=== PATIENT | male | born 1990 | race Caucasian/White ===

== ENCOUNTER 2018-02-10 16:08 | Inpatient (IN) | payer OTHER ==
[~2018-02-10] VITALS: Ht 170.2 cm; Wt 113.4 kg
--- NOTE | 2018-02-10 17:11 | ED GI/GU/ABDOMINAL COMPLAINT ---
History of Present Illness General Chief Complaint: Abdominal Pain/Flank Pain Stated Complaint: ABD PAIN & HAVING ISSUES URINATING Source: patient Exam Limitations: no limitations Vital Signs & Intake/Output Vital Signs & Intake/Output Vital Signs Date Time Temp Pulse Resp B/P B/P Pulse O2 O2 Flow FiO2 Mean Ox Delivery Rate 02/10 2011 100.0 100 20 136/68 98 Room Air 02/10 1752 101.1 97 18 147/65 98 Room Air 02/10 1720 Room Air 02/10 1612 98.6 112 18 153/84 98 Room Air Allergies Coded Allergies: amoxicillin (HIVES 02/10/18) Triage Note: PT STATES A FEW DAYS AGO HE THOUGHT HE PULLED HIS GROIN AND STOMACH MUSCLES. PT STATES THEN HE STARTED HAVING PAIN IN HIS TESTICLES. PT STATSE HE HAS BEEN URINATING A LOT AND HAS DYSURIA. PT HAVING BODY ACHES. Triage Nurses Notes Reviewed? yes Onset: Abrupt Duration: day(s): (3-4), constant, continues in ED, getting worse Timing: single episode today Quality/Severity: dullness, fullness Severity Numbers: 7 Location: suprapubic Radiation: scrotal Activities at Onset: none Prior Abdominal Problems: none Sexually Active: No Last Time You Were Sexual: greater than 2 months ago No Modifying Factors: none Modifying Factors: Worsens With: palpation, urinating. HPI: 27-year-old male with no past medical history presents for evaluation of abdominal pain and testicular pain. Patient reports symptoms started 3 or 4 days ago and have been persistent. He reports pain located in the super pubic area radiating to both testicles. He reports associated urinary frequency and dysuria. No penile discharge no testicular swelling no nausea or vomiting. He also reports he has had intermittent constipation he had a small bowel movement yesterday. No blood no diarrhea no melena. He has had some sweats chills body aches and subjective fever. He has not taken any medicine for his symptoms. No recent abdominal surgeries no similar symptoms in the past. He is not currently sexually active. No history of STDs. (Leonardo BECKFORD,Alon) Past History Travel History Traveled to [place] past 21 day No Medical History Any Pertinent Medical History? see below for history Surgical History Surgical History: non-contributory Psychosocial History What is your primary language [place]orese Tobacco Use: Current Daily Use Daily Tobacco Use Amount/Type: => 5 Cigarettes daily ETOH Use: occasional use Illicit Drug Use: denies illicit drug use Family History Hx Contributory? No (Alon Leal) Review of Systems Review of Systems Constitutional: Reports: no symptoms. EENTM: Reports: no symptoms. Respiratory: Reports: no symptoms. Cardiovascular: Reports: no symptoms. GI: Reports: see HPI, abdominal pain. Genitourinary: Reports: see HPI. Musculoskeletal: Reports: no symptoms. Skin: Reports: no symptoms. Neurological/Psychological: Reports: no symptoms. Hematologic/Endocrine: Reports: no symptoms. Immunologic/Allergic: Reports: no symptoms. All Other Systems: Reviewed and Negative (Alon Leal) Physical Exam Physical Exam General Appearance: well developed/nourished, no apparent distress, alert, awake Head: atraumatic, normal appearance Eyes: Bilateral: normal appearance, PERRL, EOMI. Ears, Nose, Throat, Mouth: hearing grossly normal, moist mucous membrane Neck: normal inspection, supple, full range of motion Respiratory: normal breath sounds, chest non-tender, no respiratory distress, lungs clear Cardiovascular: regular rate/rhythm, normal peripheral pulses Peripheral Pulses: 2+ radial (R), 2+ radial (L) Gastrointestinal: normal bowel sounds, soft, no organomegaly, tenderness ( suprapubic) Male Genitals: normal genitalia, testicular tenderness (R), testicular tenderness (L), no testicular swelling redness or crepitus Back: normal inspection, normal range of motion, no vertebral tenderness Extremities: normal range of motion Neurologic/Psych: no motor/sensory deficits, awake, alert, oriented x 3, normal gait, normal mood/affect Skin: intact, normal color, warm/dry Core Measures ACS in differential dx? No Sepsis Present: No Sepsis Focused Exam Completed? No (Alon Leal) Progress Differential Diagnosis: appendicitis, biliary colic, bowel obstruction, cholecystitis, diverticulitis, inflamm bowel dis, orchitis, pancreatitis, peptic ulcer, pyelonephritis, SBO, STD, testicular torsion, ureterolithiasis, urinary retention, urethritis, UTI/pyelo Plan of Care: Orders Procedure Date/time Status Nothing by Mouth 02/11 B Active CBC WITHOUT DIFFERENTIAL 02/11 600 Active BASIC ELECTROLYTES PLUS BUN&CR 02/11 600 Active Pathway - chart 02/10 2127 Active Patient Data 02/10 2118 Active Code Status 02/10 2118 Active BLOOD CULTURE 02/10 190 Active Add-on Test (ER Only) 02/10 172 Active COMPREHENSIVE METABOLIC PANEL 02/10 171 Complete CBC WITHOUT DIFFERENTIAL 02/10 171 Complete CHLAMYDIA-GC DNA PROBE 02/10 162 Active URINALYSIS 02/[address] in observation 02/10 UNK Active VTE Mechanical Prophylaxis 02/10 UNK Active Vital Signs 02/10 UNK Active Intake & Output 02/10 UNK Active Activity/Ambulation 02/10 UNK Active Current Medications Sig/Romi Start time Last Medication Dose Stop Time Status Admin Heparin Sodium 5,000 UNIT Q8 02/11 1400 AC (Porcine) Ceftriaxone Sodium 1,000 MG DAILY 02/11 0900 AC (Rocephin) Metronidazole 500 MG IQ8 02/11 0000 AC (Flagyl) N/A 1 UNIT (No Carrier) Acetaminophen 650 MG Q6PRN PRN 02/10 213 AC (Tylenol) Dextrose/Sodium 1,000 ML .Q8H 02/10 2130 AC Chloride (D5-Normal Saline) Morphine Sulfate 2 MG Q3 PRN 02/10 213 AC (MORPHINE SULFATE) Morphine Sulfate 4 MG Q3P PRN 02/10 213 AC (MORPHINE SULFATE) Ondansetron HCl 4 MG Q6-PRN PRN 02/10 2130 AC (Zofran) Laboratory Tests 02/10/181727: Anion Gap 17 H, Estimated GFR > 60, BUN/Creatinine Ratio 11.7, Glucose 92, Calcium 9.4, Total Bilirubin 0.9, AST 21, ALT 31, Alkaline Phosphatase 119, Total Protein 7.9, Albumin 4.3, Globulin 3.6, Albumin/Globulin Ratio 1.2, CBC w Diff NO MAN DIFF REQ, RBC 5.15, MCV 83.9, MCH 28.6, MCHC 34.1, RDW 12.4, MPV 7.9 , Gran % 80.5 H, Lymphocytes % 7.3 L, Monocytes % 11.3 H, Eosinophils % 0.5, Basophils % 0.4, Absolute Granulocytes 10.8 H, Absolute Lymphocytes 1.0 L, Absolute Monocytes 1.5 H, Absolute Eosinophils 0.1, Absolute Basophils 0 02/10/181624: Urine Color YEL, Urine Clarity CLEAR, Urine pH 6.5, Ur Specific [place] <= 1.005 , Urine Protein NEG, Urine Ketones 40 H, Urine Nitrite NEG, Urine Bilirubin NEG , Urine Urobilinogen 0.2, Ur Leukocyte Esterase NEG, Ur Microscopic EXAM NOT REQUIRED, Urine Hemoglobin NEG, Urine Glucose NEG Microbiology 02/10 1909 BLOOD: Blood Culture - ORD 02/10 1909 BLOOD: Blood Culture - ORD 02/10 1625 URINE ROUT: GC DNA Probe - RECD 02/10 1625 URINE ROUT: Chlamydia DNA Probe (SHAHANA) - RECD Patient is here with superpubic abdominal pain and urinary symptoms he also has testicular pain. Urine is not showing any signs of infection. Patient did spike a temp of 101. Fluids IV Toradol ordered. CT scan labs testicular ultrasound ordered. And 13,000. Testicular ultrasound is negative. CT scan shows diverticulitis, treated by intramural abscess. The affectedbladder Is encroaching on the bladder causing bladder wall thickening. No obvious abscess. Patient denies stool or air in his urine. Patient will be admitted to the surgical service for further evaluation and treatment. IV antibiotics Flagyl and Rocephin ordered. Blood cultures ordered. Case discussed with Dr. hernandez he agrees. Diagnostic Imaging: Viewed by Me: CT Scan, Ultrasound. Discussed w/RAD: CT Scan, Ultrasound. Radiology Impression: PATIENT: HERBIE THIBODEAUX PRESENT AGE: 27 PATIENT ACCOUNT NO: [id number] : 89 LOCATION: [facility] ORDERING PHYSICIAN: Alon BECKFORD SERVICE DATE: 02/10/18 EXAM TYPE: US - US-TESTICULAR EXAMINATION: US SCROTUM CLINICAL INFORMATION: Bilateral testicular pain COMPARISON: CT abdomen pelvis 02/10/2018 TECHNIQUE: A sonogram of the scrotum was performed assessing akins-scale appearance and color Doppler flow. Spectral analysis and Doppler interrogation was performed. FINDINGS: RIGHT : Right testicle measures 2.5 x 2.0 x 3.6 cm, volume 12.8 mL. Parenchymal echotexture is normal. No focal testicular parenchymal lesions are visualized. Normal symmetric intratesticular flow is visualized. Right epididymal head is normal in size. No right hydrocele or varicocele is seen. LEFT: Left testicle measures 4.1 x 1.9 x 2.7 cm, volume 14.9 mL. Parenchymal echotexture is normal. No focal testicular parenchymal lesions are visualized. Normal symmetric intratesticular flow is visualized. Left epididymal head is normal in size. No left hydrocele or varicocele is seen. IMPRESSION: Normal scrotal ultrasound. DICTATED BY: Radha Mesa MD DATE/TIME DICTATED:02/10/181911 AUTOMOTIVE QUALITY MANAGER :FERNANDO DATE/TIME TRANSCRIBED:02/10/181911 CONFIDENTIAL, DO NOT COPY WITHOUT APPROPRIATE AUTHORIZATION. Initial ED EKG: none (Alon Leal) Departure Departure Disposition: STILL A PATIENT Condition: Stable Clinical Impression Primary Impression: Diverticulitis of large intestine with abscess Qualifiers: Diverticulitis bleeding: without bleeding Qualified Code: K57.20 - Diverticulitis of large intestine with perforation and abscess without bleeding Referrals: Patient Has No Primary Care Dr (PCP/Family) Departure Forms: Customer Survey General Discharge Information Admission Note Spoke With: Raul Kc DO Documentation of Exam: Documentation of any treatments & extenuating circumstances including Concerns Regarding Discharge (functional status, medication knowledge or non-compliance, living conditions, etc.) that warrant an admission rather than observation: [IV antibiotics, IV fluids, IV pain meds, serial labs, surgical consult for drainage of abscess] (Alon Leal) PA/PRODUCE SERVICE TEAM MEMBER Co-Sign Statement Statement: ED Attending supervision documentation- x I saw and evaluated the patient. I have also reviewed all the pertinent lab results and diagnostic results. I agree with the findings and the plan of care as documented in the PA's/PRODUCE SERVICE TEAM MEMBER's documentation. LLQ tenderness, dysuria: diverticulitis with abscess on CT. [] I have reviewed the ED Record and agree with the PA's/PRODUCE SERVICE TEAM MEMBER's documentation. [] Additions or exceptions (if any) to the PAs/PRODUCE SERVICE TEAM MEMBER's note and plan are summarized below: [] (Kelli NORMAN,Quentin)
[2018-02-10 17:52] LABS: ABSOLUTE BASOPHIL COUNT 0 /CUMM (0.0-0.2); ABSOLUTE EOSINOPHIL COUNT 0.1 /CUMM (0.0-0.7); ABSOLUTE GRANULOCYTE CT 10.8 /CUMM (1.4-6.5); ABSOLUTE MONOCYTE COUNT 1.5 /CUMM (0.10-0.60); BASOPHIL % 0.4 % (0.0-2.0); EOSINOPHIL % 0.5 % (0-5); GRANULOCYTE % 80.5 % (42.2-75.2); HEMATOCRIT 43.2 % (42-52); MEAN CORPUSCULAR HGB 28.6 PG (27.0-31.0); MEAN CORPUSCULAR HGB CONC 34.1 G/DL (33.0-37.0); MEAN CORPUSCULAR VOLUME 83.9 FL (80.0-94.0); MEAN PLATELET VOLUME 7.9 FL (7.4-10.4); PLATELET COUNT 303 /CUMM (130-400); RBC DISTRIBUTION WIDTH 12.4 % (11.5-14.5); RED BLOOD CELL CT 5.15 /CUMM (4.70-6.10); WHITE BLOOD CELL COUNT 13.4 /CUMM (4.8-10.8)
--- NOTE | 2018-02-10 18:54 | CT SCAN REPORT ---
EXAMINATION: CT ABDOMEN AND PELVIS WITH CONTRAST CLINICAL INFORMATION: Suprapubic pain and fever. COMPARISON: Abdominal ultrasound 08/22/2009. TECHNIQUE: Multidetector volumetric imaging was performed of the abdomen and pelvis following IV administration of 95 mL of Optiray 320 intravenous contrast. Sagittal and coronal reformatted images were obtained on the technologist's workstation. DLP: 661.63 mGy-cm FINDINGS: LUNG BASES: The visualized lung bases are unremarkable. LIVER, GALLBLADDER, AND BILIARY TREE: The liver is normal in size, shape, and attenuation. No focal hepatic lesion or biliary ductal dilatation is present. The gallbladder is unremarkable with no evidence of radiopaque gallstones, gallbladder wall thickening, or obvious pericholecystic inflammatory changes. PANCREAS: Unremarkable. SPLEEN: Unremarkable. ADRENAL GLANDS: Unremarkable. KIDNEYS AND URETERS: The kidneys are normal in size, shape, and attenuation. No hydronephrosis, hydroureter, or calculi seen. No perinephric stranding. BLADDER: The dome of the bladder is thickened adjacent to an abscess that extends from the sigmoid colon. GASTROINTESTINAL TRACT: Severe inflammatory changes of the mid sigmoid colon where there is evidence of diverticular disease consistent with acute diverticulitis. There is an oval hypodense collection that appears to be within the wall of the colon measuring 2.1 x 5.7 x 2.0 cm in the AP by transverse by craniocaudal dimensions. Extending inferiorly from this focal collection is a loculation that closely marginates the bladder in an area of bladder wall thickening. This more inferiorly located loculation measures approximately 2.6 x 2.8 x 2.2 cm in the AP by transverse by craniocaudal dimensions, respectively. This is intimately associated with the bladder wall and cannot be from it. The appendix is unremarkable. No bowel obstruction. ABDOMINAL WALL: No significant hernia is appreciated. LYMPH NODES: Multiple small likely reactive lymph nodes are seen within the mesenteric root approaching the pelvis in the area of sigmoid inflammation. No bulky lymphadenopathy within the abdomen or pelvis. VASCULAR: Unremarkable. PELVIC VISCERA: Unremarkable. OSSEOUS STRUCTURES: No acute or suspicious osseous abnormality. IMPRESSION: 1. Acute diverticulitis of the mid sigmoid colon complicated by an intramural abscess. From this intramural abscess, a small loculation extends inferiorly and is intimately associated with the bladder dome. The bladder wall in this area is thickened in reaction to the abscess. There are regional reactive lymph nodes. 2. The appendix is unremarkable.
--- NOTE | 2018-02-10 19:16 | ULTRASOUND REPORT ---
EXAMINATION: US SCROTUM CLINICAL INFORMATION: Bilateral testicular pain COMPARISON: CT abdomen pelvis 02/10/2018 TECHNIQUE: A sonogram of the scrotum was performed assessing akins-scale appearance and color Doppler flow. Spectral analysis and Doppler interrogation was performed. FINDINGS: RIGHT: Right testicle measures 2.5 x 2.0 x 3.6 cm, volume 12.8 mL. Parenchymal echotexture is normal. No focal testicular parenchymal lesions are visualized. Normal symmetric intratesticular flow is visualized. Right epididymal head is normal in size. No right hydrocele or varicocele is seen. LEFT: Left testicle measures 4.1 x 1.9 x 2.7 cm, volume 14.9 mL. Parenchymal echotexture is normal. No focal testicular parenchymal lesions are visualized. Normal symmetric intratesticular flow is visualized. Left epididymal head is normal in size. No left hydrocele or varicocele is seen. IMPRESSION: Normal scrotal ultrasound.
--- NOTE | 2018-02-10 21:12 | History & Physical Pre-Op ---
Briseyda Alexis 02/10/182110: General Information and HPI History of Present Illness: 27yoM presents to ED with lower abd pain worsening over last 3 days. Denies PMHx other than active smoker x15yrs. Pain began in groin and thought he pulled a muscle, but pain has localized to lower abd/pelvic region. Denies n/v, but has had subjective fevers at home and Tm 101 here in ED. Last BM 3 days ago, does have occasional constipation. Denies dysuria, no fecal matter or pneumaturia. Has never had pain like this in past, and has no history of gi disorders or divertixculitis. No hx colonoscopy, no fam hx colon ca or gi problems. no surgical hx. Past History Medical History Cardiovascular: NONE Respiratory: NONE Gastrointestinal: NONE Musculoskeletal: NONE Psychiatric: NONE Endocrine: NONE Blood Disorders: NONE Cancer(s): NONE Surgical History Pertinent Surgical History: none Past Family/Social History Psychosocial History Smoking Status: Current Everyday Smoker (1ppd x15yr) ETOH Use: denies use (weekends), occasional use Illicit Drug Use: denies illicit drug use Employment History Employment: Employed Profession/Employer: [employer] Exam & Diagnostic Data Last 24 Hrs of Vital Signs/I&O Vital Signs Date Time Temp Pulse Resp B/P B/P Pulse O2 O2 Flow FiO2 Mean Ox Delivery Rate 02/10 2011 100.0 100 20 136/68 98 Room Air 02/10 1752 101.1 97 18 147/65 98 Room Air 02/10 1720 Room Air 02/10 1612 98.6 112 18 153/84 98 Room Air Physical Exam: GEN: NAD CARD: S1S2 RRR PULM: CTAB ABD: obese, soft, ttp suprapubic, no masses or lesions, nondistended, +bs EXT: calves soft nt, no edema Last 24 Hrs of Labs/Dex: Laboratory Tests 02/10/18 1728: Anion Gap 17 H, Estimated GFR > 60, BUN/Creatinine Ratio 11.7, Glucose 92, Calcium 9.4, Total Bilirubin 0.9, AST 21, ALT 31, Alkaline Phosphatase 119, Total Protein 7.9, Albumin 4.3, Globulin 3.6, Albumin/Globulin Ratio 1.2, CBC w Diff NO MAN DIFF REQ, RBC 5.15, MCV 83.9, MCH 28.6, MCHC 34.1, RDW 12.4, MPV 7.9 , Gran % 80.5 H, Lymphocytes % 7.3 L, Monocytes % 11.3 H, Eosinophils % 0.5, Basophils % 0.4, Absolute Granulocytes 10.8 H, Absolute Lymphocytes 1.0 L, Absolute Monocytes 1.5 H, Absolute Eosinophils 0.1, Absolute Basophils 0 02/10/18 162: Urine Color YEL, Urine Clarity CLEAR, Urine pH 6.5, Ur Specific [place] <= 1.005 , Urine Protein NEG, Urine Ketones 40 H, Urine Nitrite NEG, Urine Bilirubin NEG , Urine Urobilinogen 0.2, Ur Leukocyte Esterase NEG, Ur Microscopic EXAM NOT REQUIRED, Urine Hemoglobin NEG, Urine Glucose NEG Microbiology 02/10 1909 BLOOD: Blood Culture - ORD 02/10 1909 BLOOD: Blood Culture - ORD 02/10 1625 URINE ROUT: GC DNA Probe - RECD 02/10 1625 URINE ROUT: Chlamydia DNA Probe (DEX) - RECD Diagnostic Data Other Results SERVICE DATE: 02/10/18 EXAM TYPE: CAT - CT ABD & PELVIS W IV CONTRAST EXAMINATION: CT ABDOMEN AND PELVIS WITH CONTRAST CLINICAL INFORMATION: Suprapubic pain and fever. COMPARISON: Abdominal ultrasound 08/22/2009. TECHNIQUE: Multidetector volumetric imaging was performed of the abdomen and pelvis following IV administration of 95 mL of Optiray 320 intravenous contrast. Sagittal and coronal reformatted images were obtained on the technologist's workstation. DLP: 661.63 mGy-cm FINDINGS: LUNG BASES: The visualized lung bases are unremarkable. LIVER, GALLBLADDER, AND BILIARY TREE: The liver is normal in size, shape, and attenuation. No focal hepatic lesion or biliary ductal dilatation is present. The gallbladder is unremarkable with no evidence of radiopaque gallstones, gallbladder wall thickening, or obvious pericholecystic inflammatory changes. PANCREAS: Unremarkable. SPLEEN: Unremarkable. ADRENAL GLANDS: Unremarkable. KIDNEYS AND URETERS: The kidneys are normal in size, shape, and attenuation. No hydronephrosis, hydroureter, or calculi seen. No perinephric stranding. BLADDER: The dome of the bladder is thickened adjacent to an abscess that extends from the sigmoid colon. GASTROINTESTINAL TRACT: Severe inflammatory changes of the mid sigmoid colon where there is evidence of diverticular disease consistent with acute diverticulitis. There is an oval hypodense collection that appears to be within the wall of the colon measuring 2.1 x 5.7 x 2.0 cm in the AP by transverse by craniocaudal dimensions. Extending inferiorly from this focal collection is a loculation that closely marginates the bladder in an area of bladder wall thickening. This more inferiorly located loculation measures approximately 2.6 x 2.8 x 2.2 cm in the AP by transverse by craniocaudal dimensions, respectively. This is intimately associated with the bladder wall and cannot be from it. The appendix is unremarkable. No bowel obstruction. ABDOMINAL WALL: No significant hernia is appreciated. LYMPH NODES: Multiple small likely reactive lymph nodes are seen within the mesenteric root approaching the pelvis in the area of sigmoid inflammation. No bulky lymphadenopathy within the abdomen or pelvis. VASCULAR: Unremarkable. PELVIC VISCERA: Unremarkable. OSSEOUS STRUCTURES: No acute or suspicious osseous abnormality. IMPRESSION: 1. Acute diverticulitis of the mid sigmoid colon complicated by an intramural abscess. From this intramural abscess, a small loculation extends inferiorly and is intimately associated with the bladder dome. The bladder wall in this area is thickened in reaction to the abscess. There are regional reactive lymph nodes. 2. The appendix is unremarkable. Assessment/Plan Assessment/Plan: A: 27 YOM with sigmoid diverticulitis with intramural abscess with inflammatory reaction of bladder seen on imaging, with leukocytosis of 13 K, febrile in emergency department, otherwise stable. P: - observation status to surgical service - DVT ppx- hep sq, alps - NPO, IVF - prn pain meds - OOB, ambulate - abx: rocephin, flagyl - serial labs - serial abd exams - dw Dr. Kc As Ranked By This Provider Problem List: 1. Diverticulitis of large intestine with abscess Raul Kc DO 02/11/18 191: General Information and HPI Allergies/Medications Allergies: Coded Allergies: amoxicillin (HIVES 02/10/18) azithromycin (UNKNOWN 02/11/18) Attending MD Review Statement Attending Statement Attending MD Statement: examined this patient, discuss w/resident/PA/INSTALL AND REPAIR TECHNICIAN, agreed w/resident/PA/INSTALL AND REPAIR TECHNICIAN, reviewed EMR data (avail), reviewed images Attending Assessment/Plan: Patient seen and examined, agree with above. Has h/o abdominal pain that would last a couple of days and then go away, this time got more severe. Currently states he feels slightly better. Tm 100.5 VSS UO ok. Abd-soft, +suprapubic tenderness. WBC down. CT scan - sigmoid diverticulitis, intermural abscess with small extension behind bladder. NPO/IVF, IV Abx, serial abdominal exams, will re -eval in next 24-48 for possible drainage of the small abscess by bladder if no improvement.
--- NOTE | 2018-02-10 21:12 | Admission Core Measures ---
Acute Coronary Syndrome (CM) ACS Core Measures Acute Coronary Syndrome Diagnosis No Congestive Heart Failure (NEW) CHF Core Measures Congestive Heart Failure Diagnosis No Cerebrovascular Accident CVA Core Measures CVA/TIA Diagnosis No Venous Thromboembolism VTE Core Carmen (View Protocol) VTE Risk Factors Acute Medical Illness No Mechanical VTE Prophylaxis d/t N/A MechProphylax Ordered No VTE Pharm Prophylaxis d/t NA PharmProphylax ordered Problem List As ranked by this Provider includes Assessment & Plan 1. Diverticulitis of large intestine with abscess
[2018-02-11 00:05] VITALS: BP 148/82
[2018-02-11 06:54] VITALS: BP 114/64
[2018-02-11 08:26] LABS: ABSOLUTE BASOPHIL COUNT 0 /CUMM (0.0-0.2); ABSOLUTE EOSINOPHIL COUNT 0 /CUMM (0.0-0.7); ABSOLUTE GRANULOCYTE CT 7.6 /CUMM (1.4-6.5); ABSOLUTE LYMPH COUNT 0.8 /CUMM (1.2-3.4); ABSOLUTE MONOCYTE COUNT 1.1 /CUMM (0.10-0.60); BASOPHIL % 0.1 % (0.0-2.0); EOSINOPHIL % 0.4 % (0-5); GRANULOCYTE % 79.6 % (42.2-75.2); MEAN CORPUSCULAR HGB 28.8 PG (27.0-31.0); MEAN CORPUSCULAR VOLUME 82.4 FL (80.0-94.0); MEAN PLATELET VOLUME 8.1 FL (7.4-10.4); PLATELET COUNT 255 /CUMM (130-400); RBC DISTRIBUTION WIDTH 11.9 % (11.5-14.5); RED BLOOD CELL CT 4.18 /CUMM (4.70-6.10); WHITE BLOOD CELL COUNT 9.6 /CUMM (4.8-10.8)
--- NOTE | 2018-02-11 08:29 | PN- General Surgery ---
Subjective Subjective: Patient reports no worsening of symptoms, and at times some minor improvement. He passed a small amount of flatus overnight, no bm. Denies air/feculant associated dysuria. Denies nausea and vomitting. Denies chest pain, shortness of breath and difficulty breahting. Is very anxious at the prospect of surgical intervention. Objective Vital Signs and I&Os Vital Signs Date Time Temp Pulse Resp B/P B/P Pulse O2 O2 Flow FiO2 Mean Ox Delivery Rate 02/11 0654 100.5 102 16 114/64 97 Room Air 02/11 0005 99.8 105 16 148/82 98 Room Air 02/10 2011 100.0 100 20 136/68 98 Room Air 02/10 1752 101.1 97 18 147/65 98 Room Air 02/10 1720 Room Air 02/10 1612 98.6 112 18 153/84 98 Room Air Intake & Output 02/11 1600 02/11 0800 02/11 0000 02/10 1600 02/10 0800 02/10 0000 Intake Total 1000 Output Total 350 Balance 650 Intake, IV 1000 Output, Urine 350 Patient 250 lb 250 lb Weight Weight Reported by Patient Measurement Method Physical Exam: General: Alert and oriented x3, no acute distress although tearful when discussing surgical fear Cardiac: RRR, s1s2 Pulm: C T A bilaterally, non-labored Abdomen: Soft, non-distended. Suprapubic tenderness with gentle palpation, some guarding noted, no peritonitic signs. Extremiteis: Moves all extremities, distal sensation intact. No peripheral edema. Skin warm, likely febrile. Bilateral calves soft and non-tender Assessment/Plan Assessment/Plan This is a 27 year old male, no pmh, placed in observation status for acute diverticulitis and bladder wall edema. Being treated conservatively with iv abx , npo. -Continue serial abdominal exams Watch for worsening abdominal pain, distension. Air/feculant material with dysuria -Offirmev for pain/fever -Continue rocephin/flagyl -Continue npo/iv fluids -Follow up cbc, watch for improved leukocytosis Will discuss plan of care with Dr. Kc Core Measures Venous Thromboembolism VTE Risk Factors Acute Medical Illness No Mechanical VTE Prophylaxis d/t N/A MechProphylax Ordered No VTE Pharm Prophylaxis d/t NA PharmProphylax ordered
[2018-02-11 08:36] LABS: HEMATOCRIT 34.4 % (42-52)
[2018-02-11 15:01] VITALS: BP 130/70
[2018-02-11 21:23] VITALS: BP 126/78
[2018-02-12 06:20] VITALS: BP 144/80
--- NOTE | 2018-02-12 07:36 | PN- General Surgery ---
See Addendum Subjective Subjective: Reports some sweats overnight. Fever of 101.3 overnight. Reports abdominal pain improving. Reports less urinary symptoms. Denies pneumaturia. Passing flatus. No bms. Denies nausea. No vomiting. Ambulating without difficulty. No shortness of breath. No chest pains. Objective Vital Signs and I&Os Vital Signs Date Time Temp Pulse Resp B/P B/P Pulse O2 O2 Flow FiO2 Mean Ox Delivery Rate 02/12 0620 99.4 83 18 144/80 96 Room Air 02/12 0422 98.8 02/11 2123 98.7 90 18 126/78 97 Room Air 02/11 2058 98.7 02/11 2002 101.3 02/11 195 101.3 02/11 1908 100.1 02/11 1501 99.9 94 20 130/70 97 02/11 1033 98.7 Intake & Output 02/12 0800 02/12 0000 02/11 1600 02/11 0800 02/11 0000 02/10 1600 Intake Total 9120 283 3871 1000 Output Total 700 825 325 350 Balance 300 75 915 650 Intake, IV 8571 348 7500 1000 Intake, Oral 0 240 Output, Urine 700 825 325 350 Patient 250 lb 250 lb 250 lb Weight Weight Reported by Patient Measurement Method Physical Exam: General - alert & oriented x 3. comfortable. no acute distress. Lungs - clear bilaterally. no w/r/r. Cardiac - s1s2. reg. Abdomen - soft. tenderness localized to left lower quadrant. Extremities - warm bilaterally. no c/c/e. calves soft and nontender b/l. Current Medications: Current Medications Sig/Romi Start time Last Medication Dose Route Stop Time Status Admin Acetaminophen 1,000 MG Q6P PRN 02/11 1045 AC 02/12 N/A 1 UNIT IV 0231 Acetaminophen 650 MG Q6PRN PRN 02/10 2130 DC PO Ceftriaxone Sodium 1,000 MG 02/11 DC IV Ceftriaxone Sodium 2,000 MG 02/11 AC 02/11 IV 1903 Ceftriaxone Sodium 1,000 MG DAILY 02/11 09 DC IV Dextrose/Sodium 1,000 ML .Q8H 02/10 2130 AC 02/12 Chloride IV 0420 Gentamicin Sulfate 240 MG ONE ONE 02/12 0800 UNVr Dextrose/Water 100 ML IV 02/12 0830 Heparin Sodium 5,000 UNIT Q8 02/11 1400 AC 02/12 (Porcine) SC 0600 Metronidazole 500 MG IQ8 02/11 0000 AC 02/11 N/A 1 UNIT IV 2353 Morphine Sulfate 2 MG Q3 PRN 02/10 2130 AC 02/11 IV 1408 Morphine Sulfate 4 MG Q3P PRN 02/10 2130 AC 02/12 IV 0026 Ondansetron HCl 4 MG Q6-PRN PRN 02/10 213 AC IV Patient Medication 1 ED ONE ONE 02/11 1700 DC 02/11 Teaching ED 02/11 1701 1653 Potassium Chloride 40 MEQ ONCE ONE 02/11 1230 DC 02/11 PO 02/11 1231 1408 Results Last 48 Hours of Labs: Laboratory Tests 02/11 02/10 0625 1728 Chemistry Sodium (137 - 145 mmol/L) 138 138 Potassium (3.5 - 5.1 mmol/L) 3.4 L 3.5 Chloride (98 - 107 mmol/L) 102 96 L Carbon Dioxide (22 - 30 mmol/L) 24 25 Anion Gap (5 - 16) 12 17 H BUN (9 - 20 mg/dL) 7 L 7 L Creatinine (0.7 - 1.2 mg/dL) 0.6 L 0.6 L Estimated GFR (>60 ml/min) > 60 > 60 BUN/Creatinine Ratio (7 - 25 %) 11.7 11.7 Glucose (65 - 99 mg/dL) 92 Calcium (8.4 - 10.2 mg/dL) 9.4 Total Bilirubin (0.2 - 1.3 mg/dL) 0.9 AST (17 - 59 U/L) 21 ALT (21 - 72 U/L) 31 Alkaline Phosphatase (< 127 U/L) 119 Total Protein (6.3 - 8.2 g/dL) 7.9 Albumin (3.5 - 5.0 g/dL) 4.3 Globulin (1.9 - 4.2 gm/dL) 3.6 Albumin/Globulin Ratio (1.1 - 2.2 %) 1.2 Hematology CBC w Diff NO MAN DIFF REQ NO MAN DIFF REQ WBC (4.8 - 10.8 /CUMM) 9.6 13.4 H RBC (4.70 - 6.10 /CUMM) 4.18 L 5.15 Hgb (14.0 - 18.0 G/DL) 12.0 L 14.8 Hct (42 - 52 %) 34.4 L 43.2 MCV (80.0 - 94.0 FL) 82.4 83.9 MCH (27.0 - 31.0 PG) 28.8 28.6 MCHC (33.0 - 37.0 G/DL) 35.0 34.1 RDW (11.5 - 14.5 %) 11.9 12.4 Plt Count (130 - 400 /CUMM) 255 303 MPV (7.4 - 10.4 FL) 8.1 7.9 Gran % (42.2 - 75.2 %) 79.6 H 80.5 H Lymphocytes % (20.5 - 51.1 %) 8.2 L 7.3 L Monocytes % (1.7 - 9.3 %) 11.7 H 11.3 H Eosinophils % (0 - 5 %) 0.4 0.5 Basophils % (0.0 - 2.0 %) 0.1 0.4 Absolute Granulocytes (1.4 - 6.5 /CUMM) 7.6 H 10.8 H Absolute Lymphocytes (1.2 - 3.4 /CUMM) 0.8 L 1.0 L Absolute Monocytes (0.10 - 0.60 /CUMM) 1.1 H 1.5 H Absolute Eosinophils (0.0 - 0.7 /CUMM) 0 0.1 Absolute Basophils (0.0 - 0.2 /CUMM) 0 0 07/23 1625 Urines Urine Color (YEL,AMB,STR) YEL Urine Clarity (CLEAR) CLEAR Urine pH (5.0 - 8.0) 6.5 Ur Specific Hart (1.001 - 1.035) <= 1.005 Urine Protein (NEG,<30 MG/DL) NEG Urine Ketones (NEG) 40 H Urine Nitrite (NEG) NEG Urine Bilirubin (NEG) NEG Urine Urobilinogen (0.1 - 1.0 EU/dl) 0.2 Ur Leukocyte Esterase (NEG) NEG Ur Microscopic EXAM NOT REQUIRED Urine Hemoglobin (NEG) NEG Urine Glucose (N MG/DL) NEG Assessment/Plan Assessment/Plan This 27 year old male no pmh, admitted for acute diverticulitis and bladder wall edema, currently improving with conservative treatment with iv abx and bowel rest continue npo / ivf continue iv rocephin / flagyl. iv gent x 1 f/u labs oob/ambulation hep sc - dvt ppx will talk to IR about whether the abscess is drainable will d/w Core Measures Venous Thromboembolism VTE Risk Factors Acute Medical Illness No Mechanical VTE Prophylaxis d/t N/A MechProphylax Ordered No VTE Pharm Prophylaxis d/t NA PharmProphylax ordered
[2018-02-12 09:01] LABS: ABSOLUTE BASOPHIL COUNT 0 /CUMM (0.0-0.2); ABSOLUTE EOSINOPHIL COUNT 0.1 /CUMM (0.0-0.7); ABSOLUTE GRANULOCYTE CT 7.6 /CUMM (1.4-6.5); ABSOLUTE LYMPH COUNT 0.9 /CUMM (1.2-3.4); ABSOLUTE MONOCYTE COUNT 1.5 /CUMM (0.10-0.60); BASOPHIL % 0.2 % (0.0-2.0); EOSINOPHIL % 0.8 % (0-5); HEMATOCRIT 37.9 % (42-52); MEAN CORPUSCULAR HGB 28.3 PG (27.0-31.0); MEAN CORPUSCULAR HGB CONC 33.8 G/DL (33.0-37.0); MEAN CORPUSCULAR VOLUME 83.8 FL (80.0-94.0); MEAN PLATELET VOLUME 8.1 FL (7.4-10.4); PLATELET COUNT 226 /CUMM (130-400); RBC DISTRIBUTION WIDTH 12.1 % (11.5-14.5); RED BLOOD CELL CT 4.53 /CUMM (4.70-6.10); WHITE BLOOD CELL COUNT 10.1 /CUMM (4.8-10.8)
[2018-02-12 14:19] VITALS: BP 120/70
[2018-02-12 20:33] VITALS: BP 142/76
[2018-02-13 06:41] VITALS: BP 138/70
--- NOTE | 2018-02-13 08:05 | PN- General Surgery ---
See Addendum Subjective Subjective: Awake, alert Had a bm this morning - loose No pain with bm although pain with movement, improved from admission but still fairly significant pain unless he is lyinig still Denies chills or nausea Objective Vital Signs and I&Os Vital Signs Date Time Temp Pulse Resp B/P B/P Pulse O2 O2 Flow FiO2 Mean Ox Delivery Rate 02/13 0641 98.6 92 16 138/70 97 Room Air 02/12 2033 100.1 96 18 142/76 98 02/12 1419 98.7 84 18 120/70 96 Intake & Output 02/13 1600 02/13 0800 02/13 0000 02/12 1600 02/12 0800 02/12 0000 Intake Total 1000 1000 1000 900 Output Total 275 1050 700 825 Balance 1000 -275 -50 300 75 Intake, IV 1000 1000 1000 900 Intake, Oral 0 0 Number 2 Bowel Movements Output, Urine 275 1050 700 825 Physical Exam: Tmax 100.1 overnight - afebrile now VSS General: alert and oriented times three Chest: clear anteriorly bilaterally, RRR Abd: soft, hypoactive bs, tender to moderate palpation in LLQ, nontender elsewhere Ext: warm, no edema Current Medications: Current Medications Sig/Romi Start time Last Medication Dose Route Stop Time Status Admin Acetaminophen 1,000 MG .STK-MED ONE 02/12 1730 DC IV 02/12 1731 Acetaminophen 1,000 MG .STK-MED ONE 02/12 1033 DC IV 02/12 1034 Acetaminophen 1,000 MG Q6P PRN 02/11 1045 AC 02/13 N/A 1 UNIT IV 0611 Ceftriaxone Sodium 2,000 MG 02/11 AC 02/12 IV 2029 Dextrose/Sodium 1,000 ML .Q8H 02/10 2130 AC 02/13 Chloride IV 0612 Gentamicin Sulfate 240 MG ONCE ONE 02/12 0830 DC 02/12 Dextrose/Water 100 ML IV 02/12 09 0955 Heparin Sodium 5,000 UNIT Q8 02/11 1400 AC 02/13 (Porcine) SC 0608 Metronidazole 500 MG IQ8 02/11 0000 AC 02/12 N/A 1 UNIT IV 2325 Morphine Sulfate 2 MG Q3 PRN 02/10 2130 AC 02/13 IV 0401 Morphine Sulfate 4 MG Q3P PRN 02/10 2130 AC 02/12 IV 0026 Ondansetron HCl 4 MG Q6-PRN PRN 02/100 AC IV Assessment/Plan Assessment/Plan 27yo male admitted with diverticulitis/micro perf, being managed medically improving but still with pain fu labs continue npo/ivf/abx rocephin/flagyl hep sc for dvt ppx Core Measures Venous Thromboembolism VTE Risk Factors Acute Medical Illness No Mechanical VTE Prophylaxis d/t N/A MechProphylax Ordered No VTE Pharm Prophylaxis d/t NA PharmProphylax ordered
[2018-02-13 08:28] LABS: ABSOLUTE BASOPHIL COUNT 0 /CUMM (0.0-0.2); ABSOLUTE EOSINOPHIL COUNT 0.1 /CUMM (0.0-0.7); ABSOLUTE GRANULOCYTE CT 6.2 /CUMM (1.4-6.5); ABSOLUTE MONOCYTE COUNT 1.5 /CUMM (0.10-0.60); BASOPHIL % 0.5 % (0.0-2.0); EOSINOPHIL % 1.3 % (0-5); GRANULOCYTE % 70.4 % (42.2-75.2); HEMATOCRIT 36.4 % (42-52); MEAN CORPUSCULAR HGB 28.8 PG (27.0-31.0); MEAN CORPUSCULAR HGB CONC 34.8 G/DL (33.0-37.0); MEAN CORPUSCULAR VOLUME 82.8 FL (80.0-94.0); MEAN PLATELET VOLUME 7.8 FL (7.4-10.4); PLATELET COUNT 279 /CUMM (130-400); RBC DISTRIBUTION WIDTH 12.2 % (11.5-14.5); WHITE BLOOD CELL COUNT 8.7 /CUMM (4.8-10.8)
--- NOTE | 2018-02-13 12:45 | Patient Discharge Instructions ---
Discharge Instructions General Discharge Information You were seen/treated for: Diverticulitits with abscess You had these procedures: None Watch for these problems: Increased pain, fever, chills, nausea, vomiting Diet Continue normal diet: No Recommended Diet: Low Residue Activity Full Activity/No Limits: Yes Acute Coronary Syndrome Inclusion Criteria At DC or during hospital stay patient has or had the following: ACS DIAGNOSIS No Discharge Core Measures Meds if any: Prescribed or Continued at Discharge Meds if any: NOT Prescribed or Continued at Discharge Congestive Heart Failure Inclusion Criteria At DC or during hospital stay patient has or had the following: CHF DIAGNOSIS No Discharge Core Measures Meds if any: Prescribed or Continued at Discharge Meds if any: NOT Prescribed or Continued at Discharge Cerebrovascular accident Inclusion Criteria At DC or during hospital stay patient has or had the following: CVA/TIA Diagnosis No Discharge Core Measures Meds if any: Prescribed or Continued at Discharge Meds if any: NOT Prescribed or Continued at Discharge Venous thromboembolism Inclusion Criteria VTE Diagnosis No VTE Type NONE VTE Confirmed by (Test) NONE Discharge Core Measures - Per Current guidelines, there needs to be overlap - treatment for the first 5 days of Warfarin therapy. - If discharged on Warfarin prior to 5 days of - overlap therapy, the patient will need to be - assessed for post discharge needs including - *Post discharge parental anticoagulation - *Warfarin and/or parental anticoagulation education - *Follow up date to check INR post discharge At least 5 days overlap therapy as Inpatient No Meds if any: Prescribed or Continued at Discharge Note: Overlap Therapy is Warfarin and Anticoagulant Meds if any: NOT Prescribed or Continued at Discharge
[2018-02-13 15:27] VITALS: BP 134/74
[2018-02-13 20:35] VITALS: BP 148/72
[2018-02-14 06:50] VITALS: BP 130/90
--- NOTE | 2018-02-14 07:33 | PN- General Surgery ---
Subjective Subjective: No complaints. Tolerating clears. No nausea. Passing flatus and +small bm. Voiding well. Ambulating well. No chills / sweats. No dizziness. No shortness of breath. No chest pains. Reviewed diets with healthcare sales representative. Eager for diet advancement and possible discharge later today. Objective Vital Signs and I&Os Vital Signs Date Time Temp Pulse Resp B/P B/P Pulse O2 O2 Flow FiO2 Mean Ox Delivery Rate 02/14 0650 98.8 84 20 130/90 98 Room Air 02/13 2035 98.8 87 14 148/72 99 Room Air 02/13 1527 100.3 103 18 134/74 97 Room Air Intake & Output 02/14 0800 02/14 0000 02/13 1600 02/13 0802/13 0000 02/12 1600 Intake Total 800 369 090 6708 1000 Output Total 1000 550 316 984 3748 Balance -200 681 354 8582 -275 -50 Intake, IV 800 103 504 7689 1000 Intake, Oral 300 360 0 Number 2 Bowel Movements Output, Urine 1000 550 682 295 3722 Patient 250 lb Weight Physical Exam: General - alert & oriented x 3. comfortable. no acute distress. Lungs - clear bilaterally. no w/r/r. Cardiac - s1s2. reg. Abdomen - soft. nontender. Extremities - warm bilaterally. no c/c/e. calves soft and nontender b/l. Current Medications: Current Medications Sig/Romi Start time Last Medication Dose Route Stop Time Status Admin Acetaminophen 1,000 MG Q6P PRN 02/11 1045 02/14 N/A 1 UNIT IV 0027 Ceftriaxone Sodium 2,000 MG 02/11 02/13 IV 2049 Dextrose/Sodium 1,000 ML .[id number] 02/10 2130 AR 02/13 Chloride IV 205 Heparin Sodium 5,000 UNIT Q8 02/11 1400 AC 02/14 (Porcine) SC 0635 Metronidazole 500 MG IQ8 02/11 0000 02/14 N/A 1 UNIT IV 0023 Morphine Sulfate 2 MG Q3 PRN 02/10 2130 02/13 IV 0401 Morphine Sulfate 4 MG Q3P PRN 02/10 2130 02/12 IV 0026 Ondansetron HCl 4 MG Q6-PRN PRN 02/10 2130 AC IV Patient Medication 1 ED ONE ONE 02/13 1700 AR Teaching ED 02/13 1701 Results Last 48 Hours of Labs: Laboratory Tests 02/13 02/12 0755 0800 Chemistry Sodium (137 - 145 mmol/L) 139 137 Potassium (3.5 - 5.1 mmol/L) 4.0 4.4 Chloride (98 - 107 mmol/L) 101 103 Carbon Dioxide (22 - 30 mmol/L) 27 23 Anion Gap (5 - 16) 11 11 BUN (9 - 20 mg/dL) 3 L 4 L Creatinine (0.7 - 1.2 mg/dL) 0.5 L 0.5 L Estimated GFR (>60 ml/min) > 60 > 60 BUN/Creatinine Ratio (7 - 25 %) 6.0 L 8.0 Hematology CBC w Diff NO MAN DIFF REQ NO MAN DIFF REQ WBC (4.8 - 10.8 /CUMM) 8.7 10.1 RBC (4.70 - 6.10 /CUMM) 4.40 L 4.53 L Hgb (14.0 - 18.0 G/DL) 12.7 L 12.8 L Hct (42 - 52 %) 36.4 L 37.9 L MCV (80.0 - 94.0 FL) 82.8 83.8 MCH (27.0 - 31.0 PG) 28.8 28.3 MCHC (33.0 - 37.0 G/DL) 34.8 33.8 RDW (11.5 - 14.5 %) 12.2 12.1 Plt Count (130 - 400 /CUMM) 279 226 MPV (7.4 - 10.4 FL) 7.8 8.1 Gran % (42.2 - 75.2 %) 70.4 75.0 Lymphocytes % (20.5 - 51.1 %) 10.9 L 9.3 L Monocytes % (1.7 - 9.3 %) 16.9 H 14.7 H Eosinophils % (0 - 5 %) 1.3 0.8 Basophils % (0.0 - 2.0 %) 0.5 0.2 Absolute Granulocytes (1.4 - 6.5 /CUMM) 6.2 7.6 H Absolute Lymphocytes (1.2 - 3.4 /CUMM) 1.0 L 0.9 L Absolute Monocytes (0.10 - 0.60 /CUMM) 1.5 H 1.5 H Absolute Eosinophils (0.0 - 0.7 /CUMM) 0.1 0.1 Absolute Basophils (0.0 - 0.2 /CUMM) 0 0 Assessment/Plan Assessment/Plan This 27 year old male no pmh, admitted for acute diverticulitis and bladder wall edema, resolving with conservative treatment with antibiotics, tolerating slow diet advancement tolerating clears. d/c iv fluids advance diet to fulls / low residue for lunch transition iv antibiotics to oral oob/ambulation hep sc - dvt ppx will d/w ?possibile discharge home with oral antibiotics this afternoon if tolerating diet advancement Core Measures Venous Thromboembolism VTE Risk Factors Acute Medical Illness No Mechanical VTE Prophylaxis d/t N/A MechProphylax Ordered No VTE Pharm Prophylaxis d/t NA PharmProphylax ordered Venous Thromboembolism VTE Risk Factors Acute Medical Illness No Mechanical VTE Prophylaxis d/t N/A MechProphylax Ordered No VTE Pharm Prophylaxis d/t NA PharmProphylax ordered
[2018-02-14] MEDS ORDERED: FLAGYL500 MG PO (07:35)
[2018-02-14] MEDS ORDERED: CIPRO500 M1 PO (07:35)
--- NOTE | 2018-02-14 07:38 | Surgical Discharge Summary ---
Visit Information Visit Dates Admission Date: 02/11/18 Discharge Date: 02/14/18 History of Present Illness Chief Complaint: abdominal pain Medical History Blood Transfusion Hx: No Neurological: NONE EENT: NONE Cardiovascular: NONE Respiratory: NONE Gastrointestinal: NONE Hepatic: NONE Renal: NONE Musculoskeletal: NONE Psychiatric: NONE Endocrine: NONE Blood Disorders: NONE Cancer(s): NONE PHYS THERAPIST/Reproductive: NONE History of MRSA: No History of VRE: No History of CDIFF: No Isolation History: Standard Surgical History Pertinent Surgical History: none Psychosocial History Where Do You Live? Home Who Do You Live With? Patient/Self Services at Home: None What is Your Primary Language? Swazi ETOH Use: denies use (weekends), occasional use Review of Systems: see h&p Hospital Course Course Attending Physician: Raul Kc DO Primary Care Physician: Patient Has No Primary Care Dr Hospital Course: Presented to the ED on 02/11/18 with acute onset abdominal pain. Imaging found acute sigmoid diverticulitis with small intramural abscess, and associated bladder wall inflammation in association with this. He was started on IV rocephin / flagyl, and kept NPO for several days. He was noted to have a few fevers during his hospitalization, but his symptoms and tenderness improved and resolved appropriately. His diet was slowly advanced with resolution of his symptoms and normalization of his leukocytosis. He tolerated diet advancement from clears to fulls to low fiber. Nutrition consult completed to review diverticular diets. His iv antibiotics were transitioned to oral antibiotics at the time of discharge, to complete 2 weeks total. Complications: None Allergies: Coded Allergies: amoxicillin (HIVES 02/10/18) azithromycin (UNKNOWN 02/11/18) Disposition Summary Disposition Principal Diagnosis: acute sigmoid diverticulitis with small intra-mural abscess Additional Diagnosis: acute sigmoid diverticulitis with small intra-mural abscess Discharge Disposition: home or self care Discharge Instructions General Discharge Information Code Status: Full Code Patient's Diet: low residue diet Patient's Activity: as tolerated Follow-Up Instructions/Appts: complete oral antibiotics (cipro / flagyl) follow up with in one week Medications at Discharge Discharge Medications: Start taking the following new medications: Ciprofloxacin HCl (Cipro) 500 MG TABLET 1 Tablet ORAL TWICE DAILY Qty = 20 No Refills Metronidazole (Flagyl) 500 MG TABLET 1 Tablet ORAL THREE TIMES DAILY Qty = 30 No Refills Instructions: do not drink alcohol while taking this medication and for several days following completion
[2018-02-14 14:16] VITALS: BP 110/70
== END 2018-02-14 18:00 | DRG 392 ==
LOC: ERH 16:08 → ERHI 21:18 → ENRESERV 21:52 → 2NA 22:42 → ENPENDDIS 02-14 07:46 → 2NA 02-14 18:00
PROVIDERS: Physician Assistant; Physician Assistant Medical; Physician Assistant Surgical
DX: K57.20 Diverticulitis of large intestine with perforation and abscess without bleeding (principal); F17.210 Nicotine dependence, cigarettes, uncomplicated; Z88.1 Allergy status to other antibiotic agents; N30.90 Cystitis, unspecified without hematuria; D72.829 Elevated white blood cell count, unspecified
CPT/HCPCS: 2NASP; 36592; 74177; 81003; 82436; 87040; 87491; 87591; 96374; 96375; J0131; J0696; J1580; J1644; J1885